=== PATIENT | female | born 1955 | race Caucasian/White ===

== ENCOUNTER 2018-03-15 15:34 | Inpatient (IN) | payer MEDICAID, OTHER ==
[2018-03-15 15:38] VITALS: BMI 26.5
[2018-03-15] MEDS ORDERED: Albuterol 0.083% Inhal Sol (2.5 mg/3 mL) UD INH STA ×3 (15:48→17:41)
--- NOTE | 2018-03-15 15:51 | ED PDOC ---
Arrival/HPI - General Time Seen by Provider: 03/15/18 15:45 Historian: EMS EM Caveat: Respiratory Distress - History of Present Illness Narrative History of Present Illness (Text): 03/15/18 15:46 Patient is a 62 year old female who was brought to the emergency department by EMS for respiratory distress. BiPAP was initiated and I saw the patient immediately for respiratory distress. EMS reports that the patient has asthma and presented last week to a hospital for similar symptoms. EMS found patient to have expiratory and inspiratory wheezing. Prior to arrival EMS administered Duoneb x 4, Solu-Medrol, Terbutaline, and magnesium to the patient(see nursing note for more details). Time/Duration: Prior to Arrival Past Medical History - Provider Review Nursing Documentation Reviewed: Yes - Infectious Disease Hx of Infectious Diseases: None - Cardiac Hx Hypertension: Yes - Pulmonary Hx Asthma: Yes Hx Chronic Obstructive Pulmonary Disease (COPD): Yes - Neurological Hx Neurological Disorder: No - HEENT Hx HEENT Disorder: No - Renal Hx Renal Disorder: No - Endocrine/Metabolic Hx Diabetes Mellitus Type 2: Yes - Hematological/Oncological Hx Blood Disorders: No - Integumentary Hx Dermatological Disorder: No - Musculoskeletal/Rheumatological Hx Musculoskeletal Disorders: No Hx Falls: No - Gastrointestinal Hx Gastrointestinal Disorders: No - Genitourinary/Gynecological Hx Genitourinary Disorders: No - Psychiatric Hx Substance Use: No - Surgical History Hx Section: Yes - Anesthesia Hx Anesthesia: Yes Hx Anesthesia Reactions: No Hx Malignant Hyperthermia: No Family/Social History - Physician Review Nursing Documentation Reviewed: Yes Family/Social History: No Known Family HX Smoking Status: Never Smoked Hx Alcohol Use: No Hx Substance Use: No Allergies/Home Meds Allergies/Adverse Reactions: Allergies No Known Allergies Allergy (Verified 03/15/18 15:38) Review of Systems - Review of Systems Systems not reviewed;Unavailable: Respiratory Distress Physical Exam Temperature: Afebrile Blood Pressure: Normal Pulse: Tachycardic Respiratory Rate: Normal Mental Status: Positive for: Alert and Oriented X 3 - Systems Exam Head: Present: Atraumatic, Normocephalic Pupils: Present: PERRL Extroacular Muscles: Present: EOMI Conjunctiva: Present: Normal Mouth: Present: Moist Mucous Membranes Neck: Present: Normal Range of Motion Respiratory/Chest: Present: Respiratory Distress (Moderate), Wheezes (bilateral expiratory wheezing.), Tachypneic, Other (Fair air exchange). No: Accessory Muscle Use Cardiovascular: Present: Regular Rate and Rhythm, Normal S1, S2. No: Murmurs Abdomen: No: Tenderness, Distention, Peritoneal Signs Back: Present: Normal Inspection Upper Extremity: Present: Normal Inspection. No: Cyanosis, Edema Lower Extremity: Present: Normal Inspection. No: Edema Neurological: Present: GCS=15, CN II-XII Intact Skin: Present: Warm, Dry, Normal Color. No: Rashes Psychiatric: Present: Alert, Oriented x 3, Normal Insight, Normal Concentration Medical Decision Making ED Course and Treatment: 03/15/18 15:46 Impression: Patient is a 62 year old female who was brought to the Emergency department by EMS for respiratory distress. Differential Diagnosis included but are not limited to: Plan: --ABG -- Labs -- Blood work -- Chest X-ray -- BiPAP -- Albuterol -- IV fluids -- Reassess and disposition Prior Visits: Notes and results from previous visits were reviewed. Progress Notes: 03/15/18 17:42 on re-eval, patient is awake and alert, is following commands appropriately, is requesting water. Will continue bipap for now and repeat albuterol neb tx. Maricruz exam at this time- mild bilateral exp wheeze. 03/15/18 19:37 admit accepted by hospitalist. patient to be admitted for asthma exacerbation, will continue bipap for now. despite negative cxr for overt pulm infiltrate, i feel abx are empirically indicated in light of leukocytosis. - Critical Care Critical Care Minutes: Other (35 minutes) - Lab Interpretations I have reviewed the lab results: Yes - RAD Interpretation Narrative RAD Interpretations (Text): 03/15/18 16:25 Chest X-ray: Dictator : Narayan Dia MD FINDINGS: LUNGS: No active pulmonary disease. PLEURA:No significant pleural effusion identified, no pneumothorax apparent. CARDIOVASCULAR: No radiographic findings to suggest acute or significant cardiovascular disease. OSSEOUS STRUCTURES: No significant abnormalities. VISUALIZED UPPER ABDOMEN: Normal. OTHER FINDINGS: Partial eventration/elevation right hemidiaphragm. IMPRESSION: No active disease. Global Marketing Operations Manager: Radiologist - EKG Interpretation EKG Interpretation (Text): 03/15/18 15:53 EKG shows sinus tachycardia at 115bpm with normal QRS, LVH, and nonspecific T wave abnormality. Interpreted by me. Interpreted by ED Physician: Yes Type: 12 lead EKG - Scribe Statement The provider has reviewed the documentation as recorded by the Scribe Yanick Turner Provider Scribe Attestation: All medical record entries made by the Scribe were at my direction and personally dictated by me. I have reviewed the chart and agree that the record accurately reflects my personal performance of the history, physical exam, medical decision making, and the department course for this patient. I have also personally directed, reviewed, and agree with the discharge instructions and disposition. Disposition/Present on Arrival - Present on Arrival Any Indicators Present on Arrival: No History of DVT/PE: No History of Uncontrolled Diabetes: Yes Urinary Catheter: Yes History Surgical Site Infection Following: None - Disposition Have Diagnosis and Disposition been Completed?: Yes Diagnosis: Asthma Disposition: HOSPITALIZED Disposition Time: 18:00 Patient Plan: Admission Patient Problems: Current Active Problems Problem Status Onset Bronchial asthma Acute Condition: FAIR
[2018-03-15 15:54] LABS: BASO # 0.1 K/mm3 (0.0-2.0); BASO % 0.5 % (0.0-3.0); EOS # 3.6 (0.0-0.7); EOS % 18.5 % (1.5-5.0); GRAN # 10.64 (1.4-6.5); GRAN % 54.2 % (50.0-68.0); HEMOGLOBIN 13.9 g/dL (12.0-16.0); LYMPH # 3.9 (1.2-3.4); LYMPH % 19.6 % (22.0-35.0); MEAN CELL VOLUME 89.1 fl (80.0-105.0); MEAN CORPUSCULAR HEMOGLOBIN 29.2 pg (25.0-35.0); MEAN CORPUSCULAR HGB CONC 32.8 g/dl (31.0-37.0); MEAN PLATELET VOLUME 11.3 fl (7.0-11.0); MONO # 1.4 (0.1-0.6); MONO % 7.2 % (1.0-6.0); RBC 4.76 10^6/uL (3.5-6.1); RED CELL DISTRIBUTION WIDTH 14.1 % (11.5-14.5); WHITE BLOOD COUNT 19.6 10^3/ul (4.5-11.0)
--- NOTE | 2018-03-15 16:12 | RAD ---
Date of service: 03/15/2018 HISTORY: Chest pain. COMPARISON: No prior. FINDINGS: LUNGS: No active pulmonary disease. PLEURA: No significant pleural effusion identified, no pneumothorax apparent. CARDIOVASCULAR: No radiographic findings to suggest acute or significant cardiovascular disease. OSSEOUS STRUCTURES: No significant abnormalities. VISUALIZED UPPER ABDOMEN: Normal. OTHER FINDINGS: Partial eventration/elevation right hemidiaphragm. IMPRESSION: No active disease.
[2018-03-15 16:27] LABS: ARTERIAL BLOOD GAS HCO3 26.9 mmol/L (21-28); ARTERIAL BLOOD GAS HEMOGLOBIN 14.1 g/dL (11.7-17.4); ARTERIAL BLOOD GAS O2 CAPACITY 20.1 mL/dl (16-24); ARTERIAL BLOOD GAS O2 CONTENT 20.1 ML/dl (15-23); ARTERIAL BLOOD GAS O2 SAT 99.9 % (95-98); ARTERIAL BLOOD GAS PCO2 60 mm/Hg (35-45); ARTERIAL BLOOD GAS PH 7.26 (7.35-7.45); ARTERIAL BLOOD GAS TCO2 28.7 mmol.L (22-28)
[2018-03-15] MEDS: Sodium Chloride 0.9% 1,000 ML IV SCH ×2 (16:40→23:00)
[2018-03-15 17:31] LABS: ALB/GLOB RATIO 1.2 (1.1-1.8); ALBUMIN 4.4 g/dL (3.0-4.8); ALT/SGPT 21 U/L (7-56); AST/SGOT 26 U/L (14-36); BLOOD UREA NITROGEN 14 mg/dL (7-21); CALCIUM 8.9 mg/dL (8.4-10.5); GFR NON-AFRICAN AMERICAN > 60
[2018-03-15 17:39] LABS: B-TYPE NATRIURETIC PEPTIDE 36.4 pg/mL (0-450)
[2018-03-15] MEDS ORDERED: levoFLOXacin 750 mg in D5W 150 ML BAG IVPB STA (17:44)
[2018-03-15] MEDS ORDERED: Albuterol-Ipratrop 3 mg / 0.5 (3 ml) UD IH PRN (21:40)
[2018-03-15] MEDS ORDERED: methylPREDNISolone 1 GM in Sodium Chloride 0.9% 250 ML IV ONE (21:40)
[2018-03-15] MEDS ORDERED: Dextrose 50% SYRINGE Inj (50 ml) IV PRN (21:45)
--- NOTE | 2018-03-15 22:13 | CP.PCM.HP ---
<Celina Sanders - Last Filed: 03/16/18 01:38> History of Present Illness - History of Present Illness History of Present Illness: HISTORY & PHYSICAL NOTE FOR HOSPITALIST TEAM Celina Sanders D.O. PGY-1 CC: SOB, cough 62 y/o wallisian speaking F with pmhx of chronic asthma, DM2, HTN presents to ED with complaints of increased SOB with associated cough and back pain that has been ongoing for the past week. She reports she has been suffering from difficulty breathing and cough for several weeks and was also recently admitted for a similar episode last week. She had improved upon discharge, but SOB subsequently worsened. She had been taking inhalors without improvement. She also reports dull chronic back pain in the R posterior thoracic region. She is currently on bipap machine and interview is limited. She denies chest pain, palpitations, nausea, vomiting, abdominal pain, constipation, diarrhea, dysuria. PMHx: Asthma, DM II, HTN, PSHx: Allergies: NKDA SocialHx: Denies history of or current smoking/tobacco, EtOH, and illicit drug use Hos: 05/2017 for acute res. failure requiring intubation FamHx: Denies Meds: Flovent HFA Aerosol, 110MCG/ACT, 1 puff, IH BID, Metformin 500 Daily, HCTZ 12.5 Daily, Lisinopril 10mg Daily PMD: Dr. Whelan Present on Admission - Present on Admission Any Indicators Present on Admission: No Review of Systems - Review of Systems Review of Systems: as per HPI Past Patient History - Infectious Disease Hx of Infectious Diseases: None - Past Medical History & Family History Past Medical History?: Yes - Past Social History Smoking Status: Never Smoked - CARDIAC Hx Cardiac Disorders: Yes Hx Hypertension: Yes - PULMONARY Hx Respiratory Disorders: Yes Hx Asthma: Yes Hx Chronic Obstructive Pulmonary Disease (COPD): Yes - NEUROLOGICAL Hx Neurological Disorder: No - HEENT Hx HEENT Problems: No - RENAL Hx Chronic Kidney Disease: No - ENDOCRINE/METABOLIC Hx Endocrine Disorders: Yes Hx Diabetes Mellitus Type 2: Yes - HEMATOLOGICAL/ONCOLOGICAL Hx Blood Disorders: No - INTEGUMENTARY Hx Dermatological Problems: No - MUSCULOSKELETAL/RHEUMATOLOGICAL Hx Musculoskeletal Disorders: No Hx Falls: No - GASTROINTESTINAL Hx Gastrointestinal Disorders: No - GENITOURINARY/GYNECOLOGICAL Hx Genitourinary Disorders: No - PSYCHIATRIC Hx Substance Use: No - SURGICAL HISTORY Hx Section: Yes - ANESTHESIA Hx Anesthesia: Yes Hx Anesthesia Reactions: No Hx Malignant Hyperthermia: No Meds Allergies/Adverse Reactions: Allergies Allergy/AdvReac Type Severity Reaction Status Date / Time No Known Allergies Allergy Verified 03/15/18 15:38 Physical Exam - Constitutional Appears: Non-toxic, No Acute Distress, Chronically Ill - Head Exam Head Exam: NORMAL INSPECTION, NORMOCEPHALIC - Eye Exam Eye Exam: EOMI, Normal appearance - ENT Exam ENT Exam: Mucous Membranes Moist, Normal Exam - Neck Exam Neck exam: Positive for: Normal Inspection - Respiratory Exam Respiratory Exam: Clear to Auscultation Bilateral, Wheezes - Cardiovascular Exam Cardiovascular Exam: Tachycardia, +S1, +S2 - GI/Abdominal Exam GI & Abdominal Exam: Soft. absent: Tenderness - Extremities Exam Extremities exam: Positive for: normal inspection. Negative for: calf tenderness, pedal edema - Back Exam Back exam: paraspinal tenderness (R sided thoracic). absent: CVA tenderness (L), CVA tenderness (R) - Neurological Exam Neurological exam: Alert - Psychiatric Exam Psychiatric exam: Normal Affect, Normal Mood - Skin Skin Exam: Dry, Intact, Warm Results - Vital Signs Recent Vital Signs: Last Vital Signs Temp 98.2 F 03/15/18 19:28 Pulse 96 H 03/15/18 19:28 Resp 19 03/15/18 19:28 BP 127/82 03/15/18 19:28 Pulse Ox 100 03/15/18 19:28 - Labs Result Diagrams: 03/15/18 15:51 03/15/18 17:15 Labs: Laboratory Results - last 24 hr 03/15/18 03/15/18 03/15/18 15:51 16:22 17:15 WBC 19.6 H RBC 4.76 Hgb 13.9 Hct 42.4 MCV 89.1 MCH 29.2 MCHC 32.8 RDW 14.1 Plt Count 268 MPV 11.3 H Gran % 54.2 Lymph % (Auto) 19.6 L [place] % (Auto) 7.2 H Eos % (Auto) 18.5 H Baso % (Auto) 0.5 Gran # 10.64 H Lymph # (Auto) 3.9 H [place] # (Auto) 1.4 H Eos # (Auto) 3.6 H Baso # (Auto) 0.10 pCO2 60 H pO2 269.0 H HCO3 26.9 ABG pH 7.26 L ABG Total CO2 28.7 H ABG O2 Saturation 99.9 H ABG O2 Content 20.1 ABG Base Excess -1.4 ABG Hemoglobin 14.1 ABG Carboxyhemoglobin 1.1 POC ABG HHb (Measured) 0.1 ABG Methemoglobin 0.8 ABG O2 Capacity 20.1 Hgb O2 Saturation 98.1 H FiO2 50.0 Sodium 139 Potassium 4.2 Chloride 100 Carbon Dioxide 28 Anion Gap 16 BUN 14 Creatinine 0.7 Est GFR ( Amer) > 60 Est GFR (Non-Af Amer) > 60 Random Glucose 210 H Calcium 8.9 Magnesium 2.9 H Total Bilirubin 0.3 AST 26 ALT 21 Alkaline Phosphatase 82 NT-Pro-B Natriuret Pep 36.4 Total Protein 8.2 Albumin 4.4 Globulin 3.8 Albumin/Globulin Ratio 1.2 Assessment & Plan - Assessment and Plan (Free Text) Assessment: 62 y/o F with PMH of chronic asthma, DM2, HTN [place] [facility] [place]. Pt was recently admitted on 03/08/18 for a similar episode of asthma exacerbation and subsequently discharged on 03/10/18 with budesonide, albuterol and montelukast. She reports initial improvement with worsening SOB within a few days. In the ED, she received 3 treatments of albuterol and a dose of levaquin. She was started on IV methylprednisolone IPVB and admitted to inpatient telemetry. Plan: Acute respiratory failure with respiratory acidosis likely secondary to asthma exacerbation Pt currently on BiPAP, afebrile, normotensive. F/u ABG w/shock panel and clinical status Continue Duoneb Q6H martha and Q2H prn Continue home montelukast Elevate head of bead 45degrees Leukocytosis secondary to infectious cause vs demargination f/u urine/blood culture start levofloxacin 750mg IVPB Start NS@ 150mls/hr DM2 Start SS Insulin D5% injection per protocol for hypoglycemia HTN Continue home lisinopril Continue home HCTZ Diet/DVT/GI ppx: HHD/Lovenox/Protonix Pt seen, examined and discussed with attending physician, Dr. Lucas <Tapan Lucas - Last Filed: 03/16/18 04:46> Results - Vital Signs Recent Vital Signs: Last Vital Signs Temp 97.8 F 03/15/18 22:00 Pulse 93 H 03/16/18 01:55 Resp 20 03/15/18 22:00 BP 114/69 03/15/18 22:00 Pulse Ox 100 03/15/18 21:40 - Labs Result Diagrams: 03/15/18 15:51 03/15/18 17:15 Labs: Laboratory Results - last 24 hr 03/15/18 03/15/18 03/15/18 15:51 16:22 17:15 WBC 19.6 H RBC 4.76 Hgb 13.9 Hct 42.4 MCV 89.1 MCH 29.2 MCHC 32.8 RDW 14.1 Plt Count 268 MPV 11.3 H Gran % 54.2 Lymph % (Auto) 19.6 L [place] % (Auto) 7.2 H Eos % (Auto) 18.5 H Baso % (Auto) 0.5 Gran # 10.64 H Lymph # (Auto) 3.9 H [place] # (Auto) 1.4 H Eos # (Auto) 3.6 H Baso # (Auto) 0.10 pCO2 60 H pO2 269.0 H HCO3 26.9 ABG pH 7.26 L ABG Total CO2 28.7 H ABG O2 Saturation 99.9 H ABG O2 Content 20.1 ABG Base Excess -1.4 ABG Hemoglobin 14.1 ABG Carboxyhemoglobin 1.1 POC ABG HHb (Measured) 0.1 ABG Methemoglobin 0.8 ABG O2 Capacity 20.1 Hgb O2 Saturation 98.1 H FiO2 50.0 Sodium 139 Potassium 4.2 Chloride 100 Carbon Dioxide 28 Anion Gap 16 BUN 14 Creatinine 0.7 Est GFR ( Amer) > 60 Est GFR (Non-Af Amer) > 60 POC Glucose (mg/dL) Random Glucose 210 H Calcium 8.9 Magnesium 2.9 H Total Bilirubin 0.3 AST 26 ALT 21 Alkaline Phosphatase 82 NT-Pro-B Natriuret Pep 36.4 Total Protein 8.2 Albumin 4.4 Globulin 3.8 Albumin/Globulin Ratio 1.2 03/15/18 23:00 WBC RBC Hgb Hct MCV MCH MCHC RDW Plt Count MPV Gran % Lymph % (Auto) [place] % (Auto) Eos % (Auto) Baso % (Auto) Gran # Lymph # (Auto) [place] # (Auto) Eos # (Auto) Baso # (Auto) pCO2 pO2 HCO3 ABG pH ABG Total CO2 ABG O2 Saturation ABG O2 Content ABG Base Excess ABG Hemoglobin ABG Carboxyhemoglobin POC ABG HHb (Measured) ABG Methemoglobin ABG O2 Capacity Hgb O2 Saturation FiO2 Sodium Potassium Chloride Carbon Dioxide Anion Gap BUN Creatinine Est GFR ( Amer) Est GFR (Non-Af Amer) POC Glucose (mg/dL) 175 H Random Glucose Calcium Magnesium Total Bilirubin AST ALT Alkaline Phosphatase NT-Pro-B Natriuret Pep Total Protein Albumin Globulin Albumin/Globulin Ratio Attending/Attestation - Attestation I have personally seen and examined this patient.: Yes I have fully participated in the care of the patient.: Yes I have reviewed all pertinent clinical information: Yes Notes (Text): 03/16/18 04:43 Patient was seen when she was in the ER in bed # 3 . Agree with history, physical examination, assessment and plan. This 62 year old woman with history of asthma, HTN, non insulin dependent DM, pneumonia, allergy to aspirin is admitted for asthma exacerbation.
[2018-03-15] MEDS: Insulin Reg-MEDIUM-Coverage SC SCH (23:08)
[2018-03-16] MEDS: Albuterol-Ipratrop 3 mg / 0.5 (3 ml) UD IH SCH ×4 (02:15→21:40)
[2018-03-16] MEDS: Sodium Chloride 0.9% 1,000 ML IV SCH ×2 (04:38→12:36)
[2018-03-16 06:31] LABS: ARTERIAL BLOOD GAS HCO3 24.3 mmol/L (21-28); ARTERIAL BLOOD GAS O2 SAT 98.9 % (95-98); ARTERIAL BLOOD GAS PCO2 42 mm/Hg (35-45); ARTERIAL BLOOD GAS PH 7.37 (7.35-7.45); ARTERIAL BLOOD GAS TCO2 25.6 mmol.L (22-28)
[2018-03-16 07:26] LABS: BASO % 0.1 % (0.0-3.0); EOS % 0.1 % (1.5-5.0); GRAN # 8.84 (1.4-6.5); HEMOGLOBIN 12.4 g/dL (12.0-16.0); LYMPH # 0.6 (1.2-3.4); LYMPH % 6.2 % (22.0-35.0); MEAN CELL VOLUME 87.9 fl (80.0-105.0); MEAN CORPUSCULAR HEMOGLOBIN 28.3 pg (25.0-35.0); MEAN CORPUSCULAR HGB CONC 32.2 g/dl (31.0-37.0); MONO # 0.1 (0.1-0.6); MONO % 0.6 % (1.0-6.0); PLATELET COUNT 167 10^3/uL (120.0-450.0); RBC 4.38 10^6/uL (3.5-6.1); RED CELL DISTRIBUTION WIDTH 13.8 % (11.5-14.5); WHITE BLOOD COUNT 9.5 10^3/ul (4.5-11.0)
[2018-03-16 07:27] LABS: BASO # 0.01 K/mm3 (0.0-2.0)
[2018-03-16 07:46] LABS: ALB/GLOB RATIO 1.2 (1.1-1.8); ALT/SGPT 27 U/L (7-56); AST/SGOT 23 U/L (14-36); BLOOD UREA NITROGEN 18 mg/dL (7-21); CALCIUM 8.5 mg/dL (8.4-10.5); GFR NON-AFRICAN AMERICAN > 60
[2018-03-16] MEDS: Insulin Reg-MEDIUM-Coverage SC SCH ×3 (08:02→17:56)
[2018-03-16 08:38] LABS: BAND 1 % (0-2); LYMPHOCYTE 3 % (22.0-35.0); NEUTROPHIL 96 % (50.0-70.0)
--- NOTE | 2018-03-16 09:20 | CARD ---
APPROVED REPORT Date of service: 03/15/2018 EKG Measurement Heart [id number] <Conclusion> Sinus tachycardia Moderate voltage criteria for LVH STTW changes
[2018-03-16] MEDS: MethylPREDNISolone 40 mg Vial IVP SCH ×2 (11:35→21:43)
[2018-03-16] MEDS: Enoxaparin 40 mg Syringe SC SCH (11:35)
--- NOTE | 2018-03-16 14:17 | CP.PCM.PN ---
<Abdirashid Graves - Last Filed: 03/16/18 19:49> Subjective - Date & Time of Evaluation Date of Evaluation: 03/16/18 Time of Evaluation: 09:10 - Subjective Subjective: Abdirashid Graves DO PGY-1, Internal Medicine Resident. Hospitalist Progress Note Patient seen and examined at bedside. Patient is resting in bed, awake and oriented. She is on BiPAP. Complaining of difficulty breathing with wheezes. Patient also admits to have right thoracic paravertebral muscle pain and tenderness to palpate. Patient denied palpitations, headache, change in bowel movement, N/V/D Objective - Vital Signs/Intake and Output Vital Signs (last 24 hours): Temp Pulse Resp BP Pulse Ox 97.8 F 96 H 20 123/80 100 03/16/18 12:00 03/16/18 12:00 03/16/18 12:00 03/16/18 12:00 03/16/18 06:00 Intake and Output: 03/16/18 03/16/18 06:59 18:59 Intake Total 1050 Output Total 0 Balance 1050 - Medications Medications: Current Medications Albuterol/Ipratropium (Duoneb 3 Mg/0.5 Mg (3 Ml) Ud) 3 ml IH Q2H PRN PRN Reason: Shortness of Breath Last Admin: 03/16/18 11:32 Dose: 3 ml Albuterol/Ipratropium (Duoneb 3 Mg/0.5 Mg (3 Ml) Ud) 3 ml IH [id number] MARTHA Last Admin: 03/16/18 13:44 Dose: 3 ml Dextrose (Dextrose 50% Inj) 0 ml IV STAT PRN; Protocol PRN Reason: Hypoglycemia Protocol Enoxaparin Sodium (Lovenox) 40 mg SC DAILY MARTHA; Protocol Last Admin: 03/16/18 11:35 Dose: 40 mg Hydrochlorothiazide (Microzide) 12.5 mg PO DAILY MARTHA Last Admin: 03/16/18 11:35 Dose: 12.5 mg Sodium Chloride (Sodium Chloride 0.9%) 1,000 mls @ 150 mls/hr IV .Q6H40M MARTHA Last Admin: 03/16/18 12:36 Dose: 150 mls/hr Dextrose (Dextrose 5% In Water 1000 Ml) 1,000 mls @ 0 mls/hr IV .Q0M PRN; Protocol PRN Reason: Hypoglycemia Protocol Insulin Human Regular (Humulin R Med) 0 units SC ACHS [facility]; Protocol Last Admin: 03/16/18 12:15 Dose: 3 units Lisinopril (Zestril) 10 mg PO DAILY [facility] Last Admin: 03/16/18 11:35 Dose: 10 mg Loratadine (Claritin) 10 mg PO DAILY [facility] Last Admin: 03/16/18 11:36 Dose: 10 mg Methylprednisolone (Solu-Medrol) 40 mg IVP Q12 [facility] Last Admin: 03/16/18 11:35 Dose: 40 mg Montelukast Sodium (Singulair) 10 mg PO HS [facility] Last Admin: 03/15/18 23:08 Dose: Not Given Pantoprazole Sodium (Protonix Ec Tab) 40 mg PO ACB [facility] - Labs Labs: 03/16/18 06:30 03/16/18 06:30 - Constitutional Appears: Well, No Acute Distress - Head Exam Head Exam: ATRAUMATIC, NORMOCEPHALIC - Eye Exam Eye Exam: Normal appearance, PERRL Pupil Exam: NORMAL ACCOMODATION - ENT Exam ENT Exam: Mucous Membranes Moist, Normal Oropharynx - Neck Exam Neck Exam: Full ROM, Normal Inspection - Respiratory Exam Respiratory Exam: Prolonged Expiratory Phase, Wheezes (diffuse wheezes b/l) - Cardiovascular Exam Cardiovascular Exam: REGULAR RHYTHM, +S1, +S2 - GI/Abdominal Exam GI & Abdominal Exam: Soft, Normal Bowel Sounds - Extremities Exam Extremities Exam: Full ROM, Normal Capillary Refill, Normal Inspection. absent: Joint Swelling, Pedal Edema - Back Exam Back Exam: muscle spasm Additional comments: right thoracic paravertebral muscle pain and tenderness to palpate - Neurological Exam Neurological Exam: Alert, Awake, CN II-XII Intact, Normal Gait, Oriented x3 - Psychiatric Exam Psychiatric exam: Normal Affect, Normal Mood - Skin Skin Exam: Dry, Intact, Normal Color, Warm Assessment and Plan - Assessment and Plan (Free Text) Assessment: 62 y/o F with PMH of chronic asthma, DM2, HTN presented with shortness of breath and wheezes a week after recent hospital admission at [facility] of similar symptoms. She received bronchodilators, IV steroids. Patient admitted to inpatient telemetry for asthma exacerbation Plan: Asthma exacerbation continue BiPAP. clinically improving ABG: pH 7.37 pCO2 42 pO2 160. improving since admission CXR: no active disease continue solu-medrol 40 IVP Q12 Continue Duoneb Q6H martha and Q2H prn Continue home montelukast pulmonology consulted Leukocytosis-improved trending down 19.6 --> 9.5 patient afebrile levofloxacin 750mg . given once in ED continue IVF NS DM2 accucheck ACHS A1C ISS-medium HTN Continue home meds lisinopril, HCTZ continue monitoring Prophylaxis DVT ppx:Lovenox GI ppx: Protonix Heart healthy diet Head of bed elevation PT eval/treat Case reviewed and plan discussed with attending physician Dr. Villa <Hui Villa R - Last Filed: 03/17/18 16:12> Objective - Vital Signs/Intake and Output Vital Signs (last 24 hours): Temp Pulse Resp BP Pulse Ox 97.1 F L 83 19 132/81 100 03/17/18 12:00 03/17/18 12:00 03/17/18 12:00 03/17/18 12:00 03/17/18 06:00 Intake and Output: 03/17/18 03/17/18 06:59 18:59 Intake Total 2700 Balance 2700 - Medications Medications: Current Medications Albuterol/Ipratropium (Duoneb 3 Mg/0.5 Mg (3 Ml) Ud) 3 ml IH Q2H PRN PRN Reason: Shortness of Breath Last Admin: 03/16/18 11:32 Dose: 3 ml Albuterol/Ipratropium (Duoneb 3 Mg/0.5 Mg (3 Ml) Ud) 3 ml IH [id number] MARTHA Last Admin: 03/17/18 14:13 Dose: 3 ml Dextrose (Dextrose 50% Inj) 0 ml IV STAT PRN; Protocol PRN Reason: Hypoglycemia Protocol Enoxaparin Sodium (Lovenox) 40 mg SC DAILY MARTHA; Protocol Last Admin: 03/17/18 10:53 Dose: 40 mg Guaifenesin (Mucinex La) 600 mg PO BID MARTHA Last Admin: 03/17/18 11:17 Dose: 600 mg Hydrochlorothiazide (Microzide) 12.5 mg PO DAILY MARTHA Last Admin: 03/17/18 10:53 Dose: 12.5 mg Dextrose (Dextrose 5% In Water 1000 Ml) 1,000 mls @ 0 mls/hr IV .Q0M PRN; Protocol PRN Reason: Hypoglycemia Protocol Insulin Human Regular (Humulin R Med) 0 units SC ACHS [facility]; Protocol Last Admin: 03/17/18 12:17 Dose: Not Given Lisinopril (Zestril) 10 mg PO DAILY [facility] Last Admin: 03/17/18 10:53 Dose: 10 mg Loratadine (Claritin) 10 mg PO DAILY [facility] Last Admin: 03/17/18 10:53 Dose: 10 mg Methylprednisolone (Solu-Medrol) 40 mg IVP Q12 [facility] Last Admin: 03/17/18 10:53 Dose: 40 mg Montelukast Sodium (Singulair) 10 mg PO HS [facility] Last Admin: 03/16/18 21:43 Dose: 10 mg Pantoprazole Sodium (Protonix Ec Tab) 40 mg PO ACB [facility] Last Admin: 03/17/18 08:14 Dose: 40 mg - Labs Labs: 03/17/18 05:30 03/17/18 05:30 Attending/Attestation - Attestation I have personally seen and examined this patient.: Yes I have fully participated in the care of the patient.: Yes I have reviewed all pertinent clinical information, including history, physical exam and plan: Yes Notes (Text): Patient seen and examined by me at 9:45AM with resident 03/16/18. Case including HPI, physical exam, and assessment and plan discussed with resident. Agree with above with following additions/corrections. Patient is a 62-year-old female past medical history significant for mild intermittent asthma, type 2 diabetes, and hypertension presented to the emergency room with shortness of breath and cough. Patient is Russian Speaking. Russian medical director occupational health used. Patient states she is feeling a little better than yesterday but still is having shorntess of breath and wheezing. States cough has improved. No chest pain or tightness. No palpitations. No headaches or dizziness. No fevers or chills. No nausea, vomiting, or abdominal pain. No dysuria. No diarrhea or constipation. Physical exam: General: Awake and alert lying in bed in no acute distress HEENT: Normocephalic atraumatic. Pupils equal reactive. No scleral icterus. Oropharynx is pink and moist. No pharyngeal erythema or exudate appreciated. Neck is supple. Cardiovascular: Normal rhythm. Normal S1, S2. No murmurs, rubs or gallops appreciated Pulmonary: Normal respiratory effort. No rhonchi, rales or wheezing appreciated. Gastrointestinal: Soft, nondistended. Nontender. Positive bowel sounds all 4 quadrants, no guarding. Musculoskeletal: Moves all extremities, no calf tenderness, no edema appre ciated. Central nervous system: AAOx3 Dermatologic: Skin warm and dry. Assessment and plan: Patient is a 62-year-old female past medical history significant for mild intermittent asthma, type 2 diabetes, and hypertension presented to the emergency room with shortness of breath and cough. 1. Asthma exacerbation. Acute respiratory failure with hypercapnia. Improving. Continue BiPAP as needed. Continue O2 via nasal cannula as needed. Pulmonary consulted, follow-up recommendations. Continue nebulizer treatments. Continue Solu-Medrol. Continue Singulair. 2. Leukocytosis. Likely reactive. Resolved. Continue to monitor. 3. Essential hypertension. Continue lisinopril and hydrochlorothiazide 4. Type 2 diabetes. Continue insulin sliding scale. Monitor Accu-Cheks. 5. GI/DVT prophylaxis. Protonix/Lovenox 6. Patient is a full code Case was discussed in detail with the patient regarding current diagnosis and treatment plan. All questions were answered
[2018-03-17] MEDS: Insulin Reg-MEDIUM-Coverage SC SCH ×5 (00:09→23:28)
[2018-03-17] MEDS: Sodium Chloride 0.9% 1,000 ML IV SCH (02:00)
[2018-03-17] MEDS: Albuterol-Ipratrop 3 mg / 0.5 (3 ml) UD IH SCH ×4 (02:19→19:19)
--- NOTE | 2018-03-17 06:25 | CP.PCM.PN ---
<Abdirashid Graves - Last Filed: 03/17/18 17:36> Subjective - Date & Time of Evaluation Date of Evaluation: 03/17/18 Time of Evaluation: 06:45 - Subjective Subjective: Abdirashid Graves DO PGY-1, Internal Medicine Resident. Hospitalist Progress Note Patient seen and examined at bedside. Patient is resting in bed, awake and oriented. She is off BiPAP. SOB and wheezes are getting better.. Patient denied palpitations, headache, change in bowel movement, N/V/D Objective - Vital Signs/Intake and Output Vital Signs (last 24 hours): Temp Pulse Resp BP Pulse Ox 97.9 F 104 H 19 102/60 100 03/17/18 06:00 03/17/18 06:00 03/17/18 06:00 03/17/18 06:00 03/17/18 06:00 Intake and Output: 03/16/18 03/17/18 18:59 06:59 Intake Total 2700 Balance 2700 - Medications Medications: Current Medications Albuterol/Ipratropium (Duoneb 3 Mg/0.5 Mg (3 Ml) Ud) 3 ml IH Q2H PRN PRN Reason: Shortness of Breath Last Admin: 03/16/18 11:32 Dose: 3 ml Albuterol/Ipratropium (Duoneb 3 Mg/0.5 Mg (3 Ml) Ud) 3 ml IH [id number] [facility] Last Admin: 03/17/18 02:19 Dose: 3 ml Dextrose (Dextrose 50% Inj) 0 ml IV STAT PRN; Protocol PRN Reason: Hypoglycemia Protocol Enoxaparin Sodium (Lovenox) 40 mg SC DAILY [facility] [place]; Protocol Last Admin: 03/16/18 11:35 Dose: 40 mg Hydrochlorothiazide (Microzide) 12.5 mg PO DAILY [facility] [place] Last Admin: 03/16/18 11:35 Dose: 12.5 mg Sodium Chloride (Sodium Chloride 0.9%) 1,000 mls @ 150 mls/hr IV .Q6H40M [facility] [place] Last Admin: 03/17/18 02:00 Dose: 150 mls/hr Dextrose (Dextrose 5% In Water 1000 Ml) 1,000 mls @ 0 mls/hr IV .Q0M PRN; Protocol PRN Reason: Hypoglycemia Protocol Insulin Human Regular (Humulin R Med) 0 units SC ACHS [facility] [place]; Protocol Last Admin: 03/17/18 00:09 Dose: Not Given Lisinopril (Zestril) 10 mg PO DAILY [facility] [place] Last Admin: 03/16/18 11:35 Dose: 10 mg Loratadine (Claritin) 10 mg PO DAILY [facility] Last Admin: 03/16/18 11:36 Dose: 10 mg Methylprednisolone (Solu-Medrol) 40 mg IVP Q12 [facility] [place] Last Admin: 03/16/18 21:43 Dose: 40 mg Montelukast Sodium (Singulair) 10 mg PO HS [facility] Last Admin: 03/16/18 21:43 Dose: 10 mg Pantoprazole Sodium (Protonix Ec Tab) 40 mg PO ACB [facility] - Labs Labs: 03/16/18 06:30 03/16/18 06:30 - Additional Findings Additional findings: - Constitutional Appears: Well, No Acute Distress - Head Exam Head Exam: ATRAUMATIC, NORMOCEPHALIC - Eye Exam Eye Exam: Normal appearance, PERRL Pupil Exam: NORMAL ACCOMODATION - ENT Exam ENT Exam: Mucous Membranes Moist, Normal Oropharynx - Neck Exam Neck Exam: Full ROM, Normal Inspection - Respiratory Exam Respiratory Exam: Prolonged Expiratory Phase, Wheezes (diffuse wheezes b/l) - Cardiovascular Exam Cardiovascular Exam: REGULAR RHYTHM, +S1, +S2 - GI/Abdominal Exam GI & Abdominal Exam: Soft, Normal Bowel Sounds - Extremities Exam Extremities Exam: Full ROM, Normal Capillary Refill, Normal Inspection. absent: Joint Swelling, Pedal Edema - Back Exam Back Exam: muscle spasm Additional comments: right thoracic paravertebral muscle pain and tenderness to palpate - Neurological Exam Neurological Exam: Alert, Awake, CN II-XII Intact, Normal Gait, Oriented x3 - Psychiatric Exam Psychiatric exam: Normal Affect, Normal Mood - Skin Skin Exam: Dry, Intact, Normal Color, Warm Assessment and Plan - Assessment and Plan (Free Text) Assessment: 62 y/o F with PMH of chronic asthma, DM2, HTN presented with shortness of breath and wheezes a week after recent hospital admission at [facility] of similar symptoms. She received bronchodilators, IV steroids. Patient admitted to inpatient telemetry for asthma exacerbation. She is improving Plan: Asthma exacerbation continue BiPAP. clinically improving ABG: pH 7.37 pCO2 42 pO2 160. improving since admission CXR: no active disease continue solu-medrol 40 IVP Q12 Continue Duoneb Q6H martha and Q2H prn Continue home montelukast pulmonology consulted mucinex started Leukocytosis fluctuating 19.6 --> 9.5-->16.2 patient afebrile levofloxacin 750mg . given once in ED continue IVF NS DM2 accucheck ACHS A1C ISS-medium HTN Continue home meds lisinopril, HCTZ continue monitoring Prophylaxis DVT ppx:Lovenox GI ppx: Protonix Heart healthy diet Head of bed elevation PT eval: d/c not a candidate for PT service Case reviewed and plan discussed with attending physician Dr. Villa <Hui Villa R - Last Filed: 03/20/18 15:32> Objective - Vital Signs/Intake and Output Vital Signs (last 24 hours): Temp Pulse Resp BP Pulse Ox 97.9 F 81 20 142/96 H 95 03/18/18 12:00 03/18/18 12:00 03/18/18 12:00 03/18/18 12:00 03/18/18 06:00 - Labs Labs: 03/18/18 06:30 03/18/18 06:30 Attending/Attestation - Attestation I have personally seen and examined this patient.: Yes I have fully participated in the care of the patient.: Yes I have reviewed all pertinent clinical information, including history, physical exam and plan: Yes Notes (Text): Patient seen and examined by me at 10:55AM with resident 03/17/18. Case including HPI, physical exam, and assessment and plan discussed with resident. Agree with above with following additions/corrections. Patient is a 62-year-old female past medical history significant for mild intermittent asthma, type 2 diabetes, and hypertension presented to the emergency room with shortness of breath and cough. Patient is [place]. [place] [employer] used. Patient states she is feeling better. Cough and shortness of breath improved. Wheezing resolved. No chest pain or chest tightness. No palpitations. No headaches or dizziness. No fevers or chills. No nausea, vomiting, or abdominal pain. No dysuria. No diarrhea or constipation. Physical exam: General: Awake and alert lying in bed in no acute distress HEENT: Normocephalic atraumatic. Pupils equal reactive. No scleral icterus. Oropharynx is pink and moist. No pharyngeal erythema or exudate appreciated. Neck is supple. Cardiovascular: Normal rhythm. Normal S1, S2. No murmurs, rubs or gallops appreciated Pulmonary: Normal respiratory effort. No rhonchi, rales or wheezing appreciated. Gastrointestinal: Soft, nondistended. Nontender. Positive bowel sounds all 4 quadrants, no guarding. Musculoskeletal: Moves all extremities, no calf tenderness, no edema appreciated. Central nervous system: AAOx3 Dermatologic: Skin warm and dry. Assessment and plan: Patient is a 62-year-old female past medical history significant for mild intermittent asthma, type 2 diabetes, and hypertension presented to the emergency room with shortness of breath and cough. 1. Asthma exacerbation. Acute respiratory failure with hypercapnia. Improving. Patient off BiPAP. Continue O2 via nasal cannula as needed. Continue nebulizer treatments. Continue Solu-Medrol. Continue Singulair. 2. Leukocytosis. Likely reactive. Resolved. Continue to monitor. 3. Essential hypertension. Continue lisinopril and hydrochlorothiazide 4. Type 2 diabetes. Continue insulin sliding scale. Monitor Accu-Cheks. 5. GI/DVT prophylaxis. Protonix/Lovenox 6. Patient is a full code Case was discussed in detail with the patient regarding current diagnosis and treatment plan. All questions were answered.
[2018-03-17 06:37] LABS: EOS % 0.1 % (1.5-5.0); GRAN # 14.83 (1.4-6.5); GRAN % 91.8 % (50.0-68.0); HEMOGLOBIN 10.7 g/dL (12.0-16.0); LYMPH # 0.6 (1.2-3.4); LYMPH % 3.8 % (22.0-35.0); MEAN CORPUSCULAR HEMOGLOBIN 28.5 pg (25.0-35.0); MEAN CORPUSCULAR HGB CONC 32.4 g/dl (31.0-37.0); MEAN PLATELET VOLUME 11.4 fl (7.0-11.0); MONO # 0.7 (0.1-0.6); MONO % 4.3 % (1.0-6.0); RBC 3.75 10^6/uL (3.5-6.1); RED CELL DISTRIBUTION WIDTH 14.4 % (11.5-14.5); WHITE BLOOD COUNT 16.2 10^3/ul (4.5-11.0)
[2018-03-17 07:01] LABS: ALB/GLOB RATIO 1.1 (1.1-1.8); ALBUMIN 3.2 g/dL (3.0-4.8); AST/SGOT 21 U/L (14-36); BLOOD UREA NITROGEN 15 mg/dL (7-21); CALCIUM 8.4 mg/dL (8.4-10.5); GFR NON-AFRICAN AMERICAN > 60
[2018-03-17 07:02] LABS: ALT/SGPT 23 U/L (7-56)
[2018-03-17] MEDS: Pantoprazole 40 mg EC Tab PO SCH (08:14)
[2018-03-17] MEDS: MethylPREDNISolone 40 mg Vial IVP SCH ×2 (10:53→22:21)
[2018-03-17] MEDS: Enoxaparin 40 mg Syringe SC SCH (10:53)
[2018-03-17] MEDS: guaiFENesin 600 mg ER Tab PO SCH ×2 (11:17→19:02)
[2018-03-18] MEDS: Albuterol-Ipratrop 3 mg / 0.5 (3 ml) UD IH SCH ×3 (01:01→13:11)
[2018-03-18 06:49] VITALS: O2SAT 95
[2018-03-18 07:10] LABS: EOS % 0.1 % (1.5-5.0); GRAN % 87.3 % (50.0-68.0); HEMOGLOBIN 11.2 g/dL (12.0-16.0); LYMPH # 0.8 (1.2-3.4); MEAN CELL VOLUME 89.1 fl (80.0-105.0); MEAN CORPUSCULAR HEMOGLOBIN 27.7 pg (25.0-35.0); MONO # 0.5 (0.1-0.6); MONO % 4.6 % (1.0-6.0); RBC 4.05 10^6/uL (3.5-6.1); RED CELL DISTRIBUTION WIDTH 14.4 % (11.5-14.5); WHITE BLOOD COUNT 10.3 10^3/ul (4.5-11.0)
[2018-03-18] MEDS: Insulin Reg-MEDIUM-Coverage SC SCH ×2 (07:30→12:00)
[2018-03-18 07:34] LABS: ALB/GLOB RATIO 1.3 (1.1-1.8); ALBUMIN 3.7 g/dL (3.0-4.8); ALT/SGPT 26 U/L (7-56); AST/SGOT 19 U/L (14-36); BLOOD UREA NITROGEN 15 mg/dL (7-21); CALCIUM 8.8 mg/dL (8.4-10.5); GFR NON-AFRICAN AMERICAN > 60
[2018-03-18] MEDS: Pantoprazole 40 mg EC Tab PO SCH (08:21)
[2018-03-18] MEDS: guaiFENesin 600 mg ER Tab PO SCH (10:32)
[2018-03-18] MEDS: MethylPREDNISolone 40 mg Vial IVP SCH (10:33)
[2018-03-18] MEDS: Enoxaparin 40 mg Syringe SC SCH (10:33)
--- NOTE | 2018-03-18 12:42 | CP.PCM.DIS ---
Provider - Provider Date of Admission: 03/15/18 19:39 Attending physician: Hui Villa DO Primary care physician: Cleopatra Higgins MD Consults: pulmonology Time Spent in preparation of Discharge (in minutes): 45 Hospital Course - Lab Results Lab Results: Micro Results 03/15/18 15:38 Blood Blood Culture - Preliminary NO GROWTH AFTER 48 HOURS Most Recent Lab Values WBC 10.3 10^3/ul (4.5-11.0) D 03/18/18 06:30 RBC 4.05 10^6/uL (3.5-6.1) 03/18/18 06:30 Hgb 11.2 g/dL (12.0-16.0) L 03/18/18 06:30 Hct 36.1 % (36.0-48.0) 03/18/18 06:30 MCV 89.1 fl (80.0-105.0) 03/18/18 06:30 MCH 27.7 pg (25.0-35.0) 03/18/18 06:30 MCHC 31.0 g/dl (31.0-37.0) 03/18/18 06:30 RDW 14.4 % (11.5-14.5) 03/18/18 06:30 Plt Count 155 10^3/uL (120.0-450.0) 03/18/18 06:30 MPV 12.0 fl (7.0-11.0) H 03/18/18 06:30 Gran % 87.3 % (50.0-68.0) H 03/18/18 06:30 Lymph % (Auto) 8.0 % (22.0-35.0) L 03/18/18 06:30 [place] % (Auto) 4.6 % (1.0-6.0) 03/18/18 06:30 Eos % (Auto) 0.1 % (1.5-5.0) L 03/18/18 06:30 Baso % (Auto) 0.0 % (0.0-3.0) 03/18/18 06:30 Gran # 9.00 (1.4-6.5) H 03/18/18 06:30 Lymph # (Auto) 0.8 (1.2-3.4) L 03/18/18 06:30 [place] # (Auto) 0.5 (0.1-0.6) 03/18/18 06:30 Eos # (Auto) 0.0 (0.0-0.7) 03/18/18 06:30 Baso # (Auto) 0.00 K/mm3 (0.0-2.0) 03/18/18 06:30 Neutrophils % (Manual) 96 % (50.0-70.0) H 03/16/18 06:30 Band Neutrophils % 1 % (0-2) 03/16/18 06:30 Lymphocytes % (Manual) 3 % (22.0-35.0) L 03/16/18 06:30 Monocytes % (Manual) TEST NOT PERFORMED 03/16/18 06:30 pCO2 42 mm/Hg (35-45) 03/16/18 06:20 pO2 160.0 mm/Hg (80-100) H 03/16/18 06:20 HCO3 24.3 mmol/L (21-28) 03/16/18 06:20 ABG pH 7.37 (7.35-7.45) 03/16/18 06:20 ABG Total CO2 25.6 mmol.L (22-28) 03/16/18 06:20 ABG O2 Saturation 98.9 % (95-98) H 03/16/18 06:20 ABG O2 Content 20.1 ML/dl (15-23) 03/15/18 16:22 ABG Base Excess -1.1 mmol/L (-2.0-3.0) 03/16/18 06:20 ABG Hemoglobin 14.1 g/dL (11.7-17.4) 03/15/18 16:22 ABG Carboxyhemoglobin 1.1 % (0.5-1.5) 03/15/18 16:22 POC ABG HHb (Measured) 0.1 % (0-5) 03/15/18 16:22 ABG Methemoglobin 0.8 % (0.0-3.0) 03/15/18 16:22 ABG O2 Capacity 20.1 mL/dl (16-24) 03/15/18 16:22 ABG Potassium 3.4 mmol/L (3.6-5.2) L 03/16/18 06:20 Hgb O2 Saturation 98.1 % (95.0-98.0) H 03/15/18 16:22 Sodium 137.0 mmol/L (132-148) 03/16/18 06:20 Chloride 109.0 mmol/L (98-107) H 03/16/18 06:20 Glucose 137 mg/dl (65-105) H 03/16/18 06:20 Lactate 1.0 mmol/L (0.7-2.1) 03/16/18 06:20 FiO2 40.0 % 03/16/18 06:20 Sodium 140 mmol/L (132-148) 03/18/18 06:30 Potassium 4.5 mmol/L (3.6-5.0) 03/18/18 06:30 Chloride 102 mmol/L (98-107) 03/18/18 06:30 Carbon Dioxide 28 mmol/L (21-33) 03/18/18 06:30 Anion Gap 14 (10-20) 03/18/18 06:30 BUN 15 mg/dL (7-21) 03/18/18 06:30 Creatinine 0.6 mg/dl (0.7-1.2) L 03/18/18 06:30 Est GFR ( Amer) > 60 03/18/18 06:30 Est GFR (Non-Af Amer) > 60 03/18/18 06:30 POC Glucose (mg/dL) 101 mg/dL (65-110) 03/18/18 11:46 Random Glucose 129 mg/dL (70-110) H 03/18/18 06:30 Calcium 8.8 mg/dL (8.4-10.5) 03/18/18 06:30 Phosphorus 2.6 mg/dL (2.5-4.5) 03/16/18 06:30 Magnesium 2.3 mg/dL (1.7-2.2) H 03/16/18 06:30 Total Bilirubin 0.2 mg/dL (0.2-1.3) 03/18/18 06:30 AST 19 U/L (14-36) 03/18/18 06:30 ALT 26 U/L (7-56) 03/18/18 06:30 Alkaline Phosphatase 54 U/L (38-126) 03/18/18 06:30 NT-Pro-B Natriuret Pep 36.4 pg/mL (0-450) 03/15/18 17:15 Total Protein 6.5 g/dL (5.8-8.3) 03/18/18 06:30 Albumin 3.7 g/dL (3.0-4.8) 03/18/18 06:30 Globulin 2.8 gm/dL 03/18/18 06:30 Albumin/Globulin Ratio 1.3 (1.1-1.8) 03/18/18 06:30 Arterial Blood Potassium 3.4 mmol/L (3.6-5.2) L 03/16/18 06:20 - Hospital Course Hospital Course: 62 y/o F with PMH of chronic asthma, DM2, HTN presented with shortness of breath and wheezes a week after recent hospital admission at [facility] of similar symptoms. Patient admitted to inpatient telemetry for asthma exacerbation. Chest-XR showed no active disease. ABG revealed respiratory acidosis due to asthma exacerbation. She received bronchodilators, IV steroids, BIPAP which clinically improved her breathing pattern. Patient was found to have leukocytosis with no fever, one dose of Levofloxacin was given and IV fluids given, WBC trended down. Patient was managed for her HTN, DM2 as well. Patient was feeling better today, wheezes improved, breathing pattern was normal. She was clinically optimized to be discharged home. Discharge instructions and counseling discussed with patient using buffer nickel ID#[id number] On discharge: Please follow up with your Primary Care Physician, Dr. Whelan within 3-5 days of discharge. You will need to see a welder gas (lung doctor) for further management of your asthma. Please take Prednisone as prescribed upon discharge Please resume your home medications as prescribed by your doctor Please take your asthma medications as prescribed by your doctor and avoid triggering factors Please keep watching your blood sugar and blood pressure daily Please follow a diabetic diet If your symptoms return, please return to nearest emergency department Discharge Exam - Head Exam Head Exam: ATRAUMATIC, NORMOCEPHALIC - Eye Exam Eye Exam: EOMI, Normal appearance, PERRL Pupil Exam: NORMAL ACCOMODATION, PERRL - ENT Exam ENT Exam: Mucous Membranes Moist, Normal Oropharynx - Neck Exam Neck exam: Full Rom, Normal Inspection - Respiratory Exam Respiratory Exam: Clear to PA & Lateral, NORMAL BREATHING PATTERN. absent: Rales, Rhonchi, Wheezes - Cardiovascular Exam Cardiovascular Exam: REGULAR RHYTHM, +S1, +S2 - GI/Abdominal Exam GI & Abdominal Exam: Normal Bowel Sounds - Extremities Exam Extremities exam: full ROM, normal capillary refill, pedal pulses present - Back Exam Back exam: NORMAL INSPECTION - Neurological Exam Neurological exam: Alert, CN II-XII Intact, Normal Gait, Oriented x3, Reflexes Normal - Psychiatric Exam Psychiatric exam: Normal Affect, Normal Mood - Skin Skin Exam: Dry, Intact, Normal Color, Warm Discharge Plan - Discharge Medications Prescriptions: Albuterol HFA [Ventolin HFA 90 mcg/actuation (8 g)] 1 puff IH Q6 PRN #2 inhaler PRN Reason: shortness of breath Budesonide [Pulmicort Respules] 0.5 mg INH Q12 #1 neb guaiFENesin [Mucinex LA] 600 mg PO BID #20 tab Hydrochlorothiazide [Microzide] 12.5 mg PO DAILY #30 capsule Lisinopril [Zestril] 10 mg PO DAILY #30 tab Loratadine [Claritin] 10 mg PO DAILY #30 tab Metformin HCl [Glucophage] 500 mg PO DAILY #30 tablet Montelukast [Singulair] 10 mg PO HS #30 tab predniSONE [Prednisone] 10 mg PO DAILY #30 tab - Follow Up Plan Condition: FAIR Disposition: HOME/ ROUTINE Instructions: How to Use a Nebulizer, Adult, Avoiding Asthma Triggers, Inhalers, Asthma Action Plan, Prediabetes (DC), Asthma (DC) Additional Instructions: Please follow up with your Primary Care Physician, Dr. Whelan within 3-5 days of discharge. You will need to see a welder gas (lung doctor) for further management of your asthma. Please take Prednisone as prescribed upon discharge Please resume your home medications as prescribed by your doctor Please take your asthma medications as prescribed by your doctor and avoid triggering factors Please keep watching your blood sugar and blood pressure daily Please follow a diabetic diet If your symptoms return, please return to nearest emergency department
[2018-03-18 13:11] VITALS: BP 142/96; PULSE 81; RESP 20; TEMP 97.9
== END 2018-03-18 16:06 | disposition home or self-care (01) | DRG 202 ==
LOC: ED 15:34 → ERH 19:39 → 2RNO 22:43
PROVIDERS: ADMIT Hospitalist; ATTEND Hospitalist
PROC: 5A09457 Assistance with Respiratory Ventilation, 24-96 Consecutive Hours, Continuous Positive Airway Pressure (ICD-10-PCS; principal; 2018-03-15)
DX: J45.21 Mild intermittent asthma with (acute) exacerbation (principal); J96.02 Acute respiratory failure with hypercapnia; E87.2 Acidosis; J44.9 Chronic obstructive pulmonary disease, unspecified; I10 Essential (primary) hypertension; E11.9 Type 2 diabetes mellitus without complications; D72.829 Elevated white blood cell count, unspecified; Z79.4 Long term (current) use of insulin; R40.2412 Glasgow coma scale score 13-15, at arrival to emergency department